=== PATIENT | male | born 1975 | race Caucasian/White ===

== ENCOUNTER 2021-09-30 12:58 | Day surgery (SDC) | payer OTHER ==
[~2021-09-30] VITALS: Ht 177.8 cm; Wt 104.6 kg
[2021-09-30] MEDS ORDERED: PRILOSEC 20MG20 MG PO (14:30)
[2021-09-30] MEDS ORDERED: MOBIC15 MG PO (14:30)
[2021-09-30] MEDS ORDERED: TRICOR 48MG48 MG PO (14:31)
[2021-09-30 15:19] VITALS: BP 149/89; PULSE 62; TEMP 97.7
[2021-09-30 15:49] VITALS: BP 121/86; PULSE 53; TEMP 97.7
[2021-09-30 16:00] VITALS: BP 129/83; PULSE 52
[2021-09-30 16:15] VITALS: BP 132/76; PULSE 49
--- NOTE | 2021-09-30 16:46 | NUR ---
1549 Pt returns from endo procedure via cart and RN assist to [facility] [place] [facility]. Pt ambulates from cart to recliner with RN assist. Monitors on and alarms set. Call light within reach. Report received from VITALY Lozano. Pt alert and oriented. Pt requests Sprite, muffin, and applesauce. Pt denies any pain or nausea. 1600 Pt taking food and drink well. No complications noted. 1625 Discharge instructions given to pt and pt's . All questions answered to their satisfaction. Handed to pt are a thank you card and discharge information. 1646 Pt transferred out of the hospital via wheelchair and this RN assist, to private vehicle driven by pt's .
== END 2021-09-30 16:46 | disposition home or self-care (01) ==
LOC: SDCO 12:58
DX: Z12.11 Encounter for screening for malignant neoplasm of colon (principal); D12.3 Benign neoplasm of transverse colon
CPT/HCPCS: J2704; J7030